=== PATIENT | male | born 1965 | race Caucasian/White ===

== ENCOUNTER 2023-10-01 05:12 | Outpatient (CLI) | payer BC | END 2023-10-01 23:59 | disposition critical access hospital (66) | LOC: EMS 05:12 | DX: R20.2 Paresthesia of skin (principal); R03.0 Elevated blood-pressure reading, without diagnosis of hypertension | CPT/HCPCS: A0425; A0429 ==

== ENCOUNTER 2023-10-01 05:29 | Emergency (ER) | payer BC ==
[2023-10-01] MEDS: SODIUM CHLORIDE 0.9% 1,000 ML IV STA (05:52)
[2023-10-01 05:54] LABS: BASOPHILS # (AUTO) 0.1 10^3/uL (0.0-0.1); BASOPHILS % (AUTO) 1.1 %; EOSINOPHILS # (AUTO) 0.3 10^3/uL (0.0-0.7); EOSINOPHILS % (AUTO) 3.9 %; HCT - HEMATOCRIT 40.1 % (42.0-52.0); HGB - HEMOGLOBIN 14.1 g/dL (14.0-18.0); LYMPHOCYTES # (AUTO) 2.8 10^3/uL (1.5-3.5); LYMPHOCYTES % (AUTO) 43.6 %; MEAN CORPUSCULAR HEMOGLOBIN 35.2 pg (27.0-31.0); MEAN CORPUSCULAR HGB CONC 35.2 g/dL (32.0-36.0); MEAN PLATELET VOLUME 8.7 fL (7.4-11.4); MONOCYTES # (AUTO) 0.6 10^3/uL (0.0-1.0); MONOCYTES % (AUTO) 9.7 %; NEUTROPHILS # (AUTO) 2.6 10^3/uL (1.5-6.6); NEUTROPHILS % (AUTO) 41.2 %; PLT - PLATELET COUNT 285 10^3/uL (130-450); RED BLOOD COUNT 4.01 10^6/uL (4.70-6.10); RED CELL DISTRIBUTION WIDTH 12.1 % (12.0-15.0); WHITE BLOOD COUNT 6.4 x10^3/uL (4.8-10.8)
[2023-10-01 06:08] LABS: ALBUMIN 3.9 g/dL (3.2-5.5); ALBUMIN/GLOBULIN RATIO 1.3 (1.0-2.2); ALKALINE PHOSPHATASE 45 IU/L (42-121); ALT ALANINE AMINOTRANSFERASE 25 IU/L (10-60); AST ASPARTATE AMINOTRANSFERASE 25 IU/L (10-42); BILIRUBIN,TOTAL 0.4 mg/dL (0.2-1.0); BUN - BLOOD UREA NITROGEN 14 mg/dL (6-20); CALCIUM 9.1 mg/dL (8.5-10.3); CARBON DIOXIDE - CO2 22 mmol/L (21-32); CHLORIDE 106 mmol/L (101-111); ETOH - ETHANOL < 10.0 mg/dL; GFR - MDRD 77 (>89); GLUCOSE 132 mg/dL (74-104); LIPASE 30 U/L (11-82); POTASSIUM 3.6 mmol/L (3.5-4.5); SODIUM 136 mmol/L (135-145); TOTAL PROTEIN 6.9 g/dL (6.4-8.9)
--- NOTE | 2023-10-01 06:43 | ED Physician Documentation ---
History of Present Illness - Stated complaint Stated Complaint: BLOODSHOT EYES, CHEST TINGLING - Chief complaint Chief Complaint: General - History obtained from History obtained from: Patient, EMS - Additonal information Additional information: The patient comes to the emergency department via EMS for chief complaint of "not feeling right". He states that he went to bed feeling more or less normal but he was a little intoxicated, but when he awoke to go to the bathroom earlier this morning, he felt dizzy and just "off". He looked in the mirror and saw that his eyes were bloodshot. The patient states he has not really been taking very good care of himself over the last week or two. He states that he has been drinking at least 3 beers every evening and also eating a lot of unhealthy, high sodium foods. The patient states that he has been drinking 2 or 3 cups of water per day. He thinks he has been sleeping well, about 8 to 10 hours per night, though he does not know if it is good quality sleep because of the alcohol. He states that [place] He is staying at a hotel with a bunch of other guys and he thinks that is part of the problem. The patient denies fevers or chills. No cough or shortness of breath. No chest pain. No abdominal pain. He states that he is feeling better now than when he called EMS. No other complaints at this time. PD PAST MEDICAL HISTORY - Past Medical History Past Medical History: Yes Cardiovascular: Pulmonary embolism Respiratory: None Neuro: None Endocrine/Autoimmune: None GI: None CAR PAINTER: None : None HEENT: None Psych: Depression Musculoskeletal: None Derm: None - Past Surgical History Past Surgical History: No - Present Medications Home Medications: Ambulatory Orders Medication Instructions Recorded Confirmed Escitalopram Oxalate [Lexapro] 20 mg PO DAILY 10/01/23 10/01/23 - Allergies Allergies/Adverse Reactions: Allergies Allergy/AdvReac Type Severity Reaction Status Date / Time No Known Drug Allergies Allergy Verified 10/01/23 05:33 - Social History Does the pt smoke?: No Smoking Status: Never smoker Does the pt drink ETOH?: Yes ETOH Use: Beer Does the pt have substance abuse?: No - Immunizations Immunizations are current?: Yes - POLST Patient has POLST: No PD ED PE NORMAL - Vitals Vital signs reviewed: Yes - General General: Alert and oriented X 3, No acute distress, Well developed/nourished - HEENT HEENT: Atraumatic, EOMI, Moist mucous membranes, Other (Mild bilateral conjunctival injection. No drainage. No eyelid puffiness.) - Neck Neck: Supple, no meningeal sign - Cardiac Cardiac: RRR, No murmur, Strong equal pulses - Respiratory Respiratory: No respiratory distress, Clear bilaterally - Abdomen Abdomen: Soft, Non tender, Non distended - Derm Derm: Normal color, Warm and dry, No rash - Extremities Extremities: No deformity, No edema, No calf tenderness / cord - Neuro Neuro: Other (Alert, grossly intact. Not clinically intoxicated.) - Psych Psych: Normal mood, Normal affect Results - Vitals Vitals: Vital Signs - 24 hr 10/01/23 10/01/23 05:34 06:41 Temperature 36.9 C 36.4 C L Heart Rate 89 75 Respiratory 16 16 Rate Blood Pressure 154/91 H 145/90 H O2 Saturation 96 99 Oxygen O2 Source Room air - Labs Labs: Laboratory Tests 10/01/23 10/01/23 05:50 05:50 WBC 6.4 RBC 4.01 L Hgb 14.1 Hct 40.1 L MCV 100.0 H MCH 35.2 H MCHC 35.2 RDW 12.1 Plt Count 285 MPV 8.7 Neut # (Auto) 2.6 Lymph # (Auto) 2.8 [place] # (Auto) 0.6 Eos # (Auto) 0.3 Baso # (Auto) 0.1 Absolute Nucleated RBC 0.00 Nucleated RBC % 0.0 Sodium 136 Potassium 3.6 Chloride 106 Carbon Dioxide 22 Anion Gap 8.0 BUN 14 Creatinine 1.0 Estimated GFR (MDRD) 77 L Glucose 132 H Calcium 9.1 Total Bilirubin 0.4 AST 25 ALT 25 Alkaline Phosphatase 45 Total Protein 6.9 Albumin 3.9 Globulin 3.0 Albumin/Globulin Ratio 1.3 Lipase 30 Ethyl Alcohol < 10.0 PD Medical Decision Making - ED course Complexity details: reviewed results, re-evaluated patient, considered differential, d/w patient ED course: The patient overall was fairly well-appearing and was actually feeling better upon arrival than he had when he was first picked up. Laboratory studies were obtained including a CBC, which showed an elevated MCV; in ER abdominal panel which was unremarkable; And a respiratory PCR panel, which was negative. The patient was given a liter of 0.9 normal saline and was feeling much better on reevaluation. We have discussed the importance of good dietary choices including whether or not to drink alcohol and if so how much. I have advised him that he needs to drink much more water than he is drinking now. We have discussed the need for follow-up and the usual indications for return. Departure - Departure Disposition: 01 Home, Self Care Clinical Impression: Dehydration, Malaise and fatigue Condition: Stable Instructions: ED Dehydration Comments: Your labs look good tonight. There are no abnormalities that raise concern for a more serious condition going on. You most likely have been dehydrated, given the increased alcohol intake, increase sodium intake, and decreased water intake recently. Please give consideration to your dietary choices including alcohol to avoid worsening your condition. Please follow-up in primary care for further concerns. Forms: PCP List
[2023-10-01 06:46] VITALS: BP 145/90; O2SAT 99
== END 2023-10-01 06:47 | disposition home or self-care (01) ==
LOC: EDSEX → ED 05:29
DX: E86.0 Dehydration (principal); R53.83 Other fatigue
CPT/HCPCS: 36415; 80053; 82077; 83690; 85025; 96360; 99283